=== PATIENT | female | born 1990 | race Hispanic/Latino ===

== ENCOUNTER → 2020-05-15 | Outpatient (CLI) | payer BC, MEDICAID ==
[~2020-05-15] MED LIST: CEPH500C2 PO; FERS325 PO; LABE100T5 PO; LIDOCAINE HCL 2% JELLY 5 ML TP ONE
== END | disposition home or self-care (01) ==
LOC: WHH 10:15
PROVIDERS: ATTEND Family Medicine
DX: T81.32XD Disruption of internal operation (surgical) wound, not elsewhere classified, subsequent encounter (principal); I10 Essential (primary) hypertension; E66.01 Morbid (severe) obesity due to excess calories; Z68.43 Body mass index [BMI] 50.0-59.9, adult; Y83.8 Other surgical procedures as the cause of abnormal reaction of the patient, or of later complication, without mention of misadventure at the time of the procedure
CPT/HCPCS: 97605; 99215

== ENCOUNTER → 2020-05-18 | Outpatient (CLI) | payer BC, MEDICAID ==
[~2020-05-18] MED LIST changes: -LIDOCAINE HCL 2% JELLY 5 ML TP ONE
== END | disposition home or self-care (01) ==
LOC: WHH 14:00
PROVIDERS: ATTEND Family Medicine
DX: T81.32XD Disruption of internal operation (surgical) wound, not elsewhere classified, subsequent encounter (principal); I10 Essential (primary) hypertension; E66.01 Morbid (severe) obesity due to excess calories; Z68.43 Body mass index [BMI] 50.0-59.9, adult; Y83.8 Other surgical procedures as the cause of abnormal reaction of the patient, or of later complication, without mention of misadventure at the time of the procedure
CPT/HCPCS: 97605; 99211

== ENCOUNTER → 2020-05-20 | Outpatient (CLI) | payer BC, MEDICAID ==
[~2020-05-20] MED LIST changes: +LIDOCAINE HCL 4% LTA SOL 4 ML VIAL TP ONE
== END | disposition home or self-care (01) ==
LOC: WHH 15:00
PROVIDERS: ATTEND Family Medicine
DX: T81.32XD Disruption of internal operation (surgical) wound, not elsewhere classified, subsequent encounter (principal); I10 Essential (primary) hypertension; E66.01 Morbid (severe) obesity due to excess calories; Z68.43 Body mass index [BMI] 50.0-59.9, adult; Y83.8 Other surgical procedures as the cause of abnormal reaction of the patient, or of later complication, without mention of misadventure at the time of the procedure
CPT/HCPCS: 97605; 99211

== ENCOUNTER 2020-05-22 22:40 | Emergency (ER) | payer BC, MEDICAID ==
[~2020-05-22 22:40] MED LIST changes: -LIDOCAINE HCL 2% JELLY 5 ML TP ONE
== END 2020-05-22 23:19 | disposition home or self-care (01) ==
LOC: EDH 22:40
DX: T81.89XA Other complications of procedures, not elsewhere classified, initial encounter (principal); I10 Essential (primary) hypertension; Z98.890 Other specified postprocedural states; X58.XXXA Exposure to other specified factors, initial encounter; Y93.89 Activity, other specified; Y92.89 Other specified places as the place of occurrence of the external cause; Y99.8 Other external cause status
CPT/HCPCS: 99281

== ENCOUNTER → 2020-05-22 | Outpatient (CLI) | payer BC, MEDICAID ==
[~2020-05-22] MED LIST changes: +LIDOCAINE HCL 2% JELLY 5 ML TP ONE; -LIDOCAINE HCL 4% LTA SOL 4 ML VIAL TP ONE
== END | disposition home or self-care (01) ==
LOC: WHH 10:00
PROVIDERS: ATTEND Family Medicine
DX: T81.32XD Disruption of internal operation (surgical) wound, not elsewhere classified, subsequent encounter (principal); I10 Essential (primary) hypertension; E66.01 Morbid (severe) obesity due to excess calories; G47.00 Insomnia, unspecified; Z68.43 Body mass index [BMI] 50.0-59.9, adult; Y83.8 Other surgical procedures as the cause of abnormal reaction of the patient, or of later complication, without mention of misadventure at the time of the procedure
CPT/HCPCS: 17250; 97605; 99211

== ENCOUNTER → 2020-05-25 | Outpatient (CLI) | payer BC, MEDICAID | END | disposition home or self-care (01) | LOC: WHH 13:30 | PROVIDERS: ATTEND Family Medicine | DX: T81.32XD Disruption of internal operation (surgical) wound, not elsewhere classified, subsequent encounter (principal); I10 Essential (primary) hypertension; E66.01 Morbid (severe) obesity due to excess calories; G47.00 Insomnia, unspecified; Z68.43 Body mass index [BMI] 50.0-59.9, adult; Y83.8 Other surgical procedures as the cause of abnormal reaction of the patient, or of later complication, without mention of misadventure at the time of the procedure | CPT/HCPCS: 97605; 99211 ==

== ENCOUNTER → 2020-05-27 | Outpatient (CLI) | payer BC, MEDICAID ==
[~2020-05-27] MED LIST changes: +LIDOCAINE HCL 2% JELLY 5 ML TP ONE
== END | disposition home or self-care (01) ==
LOC: WHH 14:00
PROVIDERS: ATTEND Family Medicine
DX: T81.32XD Disruption of internal operation (surgical) wound, not elsewhere classified, subsequent encounter (principal); I10 Essential (primary) hypertension; E66.01 Morbid (severe) obesity due to excess calories; G47.00 Insomnia, unspecified; Z68.43 Body mass index [BMI] 50.0-59.9, adult; Y83.8 Other surgical procedures as the cause of abnormal reaction of the patient, or of later complication, without mention of misadventure at the time of the procedure
CPT/HCPCS: 97605; 99211

== ENCOUNTER → 2020-05-29 | Outpatient (CLI) | payer BC, MEDICAID | END | disposition home or self-care (01) | LOC: WHH 09:30 | PROVIDERS: ATTEND Family Medicine | DX: O90.0 Disruption of cesarean delivery wound (principal); I10 Essential (primary) hypertension; E66.01 Morbid (severe) obesity due to excess calories; G47.00 Insomnia, unspecified; Z68.43 Body mass index [BMI] 50.0-59.9, adult; Y83.8 Other surgical procedures as the cause of abnormal reaction of the patient, or of later complication, without mention of misadventure at the time of the procedure | CPT/HCPCS: 97605; 99214 ==

== ENCOUNTER → 2020-06-01 | Outpatient (CLI) | payer BC, MEDICAID ==
[~2020-06-01] MED LIST changes: -LIDOCAINE HCL 2% JELLY 5 ML TP ONE
== END | disposition home or self-care (01) ==
LOC: WHH 14:00
PROVIDERS: ATTEND Family Medicine
DX: T81.32XD Disruption of internal operation (surgical) wound, not elsewhere classified, subsequent encounter (principal); I10 Essential (primary) hypertension; E66.01 Morbid (severe) obesity due to excess calories; G47.00 Insomnia, unspecified; Z68.43 Body mass index [BMI] 50.0-59.9, adult; Y83.8 Other surgical procedures as the cause of abnormal reaction of the patient, or of later complication, without mention of misadventure at the time of the procedure
CPT/HCPCS: 97605; 99211

== ENCOUNTER → 2020-06-03 | Outpatient (CLI) | payer BC, MEDICAID | END | disposition home or self-care (01) | LOC: WHH 15:00 | PROVIDERS: ATTEND Family Medicine | DX: T81.32XD Disruption of internal operation (surgical) wound, not elsewhere classified, subsequent encounter (principal); I10 Essential (primary) hypertension; E66.01 Morbid (severe) obesity due to excess calories; G47.00 Insomnia, unspecified; Z68.43 Body mass index [BMI] 50.0-59.9, adult; Y83.8 Other surgical procedures as the cause of abnormal reaction of the patient, or of later complication, without mention of misadventure at the time of the procedure | CPT/HCPCS: 97605; 99211 ==

== ENCOUNTER → 2020-06-05 | Outpatient (CLI) | payer BC, MEDICAID ==
[~2020-06-05] MED LIST changes: +LIDOCAINE HCL 2% JELLY 5 ML TP ONE
== END | disposition home or self-care (01) ==
LOC: WHH 09:00
PROVIDERS: ATTEND Family Medicine
DX: O90.0 Disruption of cesarean delivery wound (principal); L02.211 Cutaneous abscess of abdominal wall; I10 Essential (primary) hypertension; E66.01 Morbid (severe) obesity due to excess calories; G47.00 Insomnia, unspecified; Z68.43 Body mass index [BMI] 50.0-59.9, adult; Y83.8 Other surgical procedures as the cause of abnormal reaction of the patient, or of later complication, without mention of misadventure at the time of the procedure
CPT/HCPCS: 87070; 87077; 87186; 99214; A6021; A6196

== ENCOUNTER → 2020-06-08 | Outpatient (CLI) | payer BC, MEDICAID ==
[~2020-06-08] MED LIST changes: -LIDOCAINE HCL 2% JELLY 5 ML TP ONE
== END | disposition home or self-care (01) ==
LOC: WHH 14:00
PROVIDERS: ATTEND Family Medicine
DX: T81.32XD Disruption of internal operation (surgical) wound, not elsewhere classified, subsequent encounter (principal); L02.211 Cutaneous abscess of abdominal wall; I10 Essential (primary) hypertension; E66.01 Morbid (severe) obesity due to excess calories; G47.00 Insomnia, unspecified; Z68.43 Body mass index [BMI] 50.0-59.9, adult; Y83.8 Other surgical procedures as the cause of abnormal reaction of the patient, or of later complication, without mention of misadventure at the time of the procedure
CPT/HCPCS: 99211; A6021; A6196

== ENCOUNTER → 2020-06-10 | Outpatient (CLI) | payer BC, MEDICAID | END | disposition home or self-care (01) | LOC: WHH 15:00 | PROVIDERS: ATTEND Family Medicine | DX: T81.32XD Disruption of internal operation (surgical) wound, not elsewhere classified, subsequent encounter (principal); L02.211 Cutaneous abscess of abdominal wall; I10 Essential (primary) hypertension; E66.01 Morbid (severe) obesity due to excess calories; G47.00 Insomnia, unspecified; Z68.43 Body mass index [BMI] 50.0-59.9, adult; Y83.8 Other surgical procedures as the cause of abnormal reaction of the patient, or of later complication, without mention of misadventure at the time of the procedure | CPT/HCPCS: 99211; A6021 ==

== ENCOUNTER → 2020-06-12 | Outpatient (CLI) | payer BC, MEDICAID ==
[~2020-06-12] MED LIST changes: +LIDOCAINE HCL 2% JELLY 5 ML TP ONE
== END | disposition home or self-care (01) ==
LOC: WHH 09:00
PROVIDERS: ATTEND Family Medicine
DX: O90.0 Disruption of cesarean delivery wound (principal); L02.211 Cutaneous abscess of abdominal wall; I10 Essential (primary) hypertension; E66.01 Morbid (severe) obesity due to excess calories; G47.00 Insomnia, unspecified; Z68.43 Body mass index [BMI] 50.0-59.9, adult; Y83.8 Other surgical procedures as the cause of abnormal reaction of the patient, or of later complication, without mention of misadventure at the time of the procedure
CPT/HCPCS: 99214; A6021

== ENCOUNTER → 2020-06-15 | Outpatient (CLI) | payer BC, MEDICAID ==
[~2020-06-15] MED LIST changes: -LIDOCAINE HCL 2% JELLY 5 ML TP ONE
== END | disposition home or self-care (01) ==
LOC: WHH 13:30
PROVIDERS: ATTEND Family Medicine
DX: T81.32XD Disruption of internal operation (surgical) wound, not elsewhere classified, subsequent encounter (principal); I10 Essential (primary) hypertension; E66.01 Morbid (severe) obesity due to excess calories; G47.00 Insomnia, unspecified; Z68.43 Body mass index [BMI] 50.0-59.9, adult; Y83.8 Other surgical procedures as the cause of abnormal reaction of the patient, or of later complication, without mention of misadventure at the time of the procedure
CPT/HCPCS: 99211; A6021

== ENCOUNTER → 2020-06-17 | Outpatient (CLI) | payer BC, MEDICAID | END | disposition home or self-care (01) | LOC: WHH 14:30 | PROVIDERS: ATTEND Family Medicine | DX: T81.32XD Disruption of internal operation (surgical) wound, not elsewhere classified, subsequent encounter (principal); I10 Essential (primary) hypertension; E66.01 Morbid (severe) obesity due to excess calories; G47.00 Insomnia, unspecified; Z68.43 Body mass index [BMI] 50.0-59.9, adult; Y83.8 Other surgical procedures as the cause of abnormal reaction of the patient, or of later complication, without mention of misadventure at the time of the procedure | CPT/HCPCS: 99211; A6021 ==

== ENCOUNTER → 2020-06-19 | Outpatient (CLI) | payer BC, MEDICAID | END | disposition home or self-care (01) | LOC: WHH 09:00 | PROVIDERS: ATTEND Family Medicine | DX: O90.0 Disruption of cesarean delivery wound (principal); I10 Essential (primary) hypertension; E66.01 Morbid (severe) obesity due to excess calories; G47.00 Insomnia, unspecified; Z68.43 Body mass index [BMI] 50.0-59.9, adult; Y83.8 Other surgical procedures as the cause of abnormal reaction of the patient, or of later complication, without mention of misadventure at the time of the procedure | CPT/HCPCS: 99214; A6021 ==

== ENCOUNTER → 2020-06-22 | Outpatient (CLI) | payer BC, MEDICAID | END | disposition home or self-care (01) | LOC: WHH 13:30 | PROVIDERS: ATTEND Family Medicine | DX: T81.32XD Disruption of internal operation (surgical) wound, not elsewhere classified, subsequent encounter (principal); I10 Essential (primary) hypertension; E66.01 Morbid (severe) obesity due to excess calories; G47.00 Insomnia, unspecified; Z68.43 Body mass index [BMI] 50.0-59.9, adult; Y83.8 Other surgical procedures as the cause of abnormal reaction of the patient, or of later complication, without mention of misadventure at the time of the procedure | CPT/HCPCS: 99211; A6021 ==

== ENCOUNTER → 2020-06-26 | Outpatient (CLI) | payer BC, MEDICAID | END | disposition home or self-care (01) | LOC: WHH 09:15 | PROVIDERS: ATTEND Family Medicine | DX: O90.0 Disruption of cesarean delivery wound (principal); I10 Essential (primary) hypertension; E66.01 Morbid (severe) obesity due to excess calories; G47.00 Insomnia, unspecified; Z68.43 Body mass index [BMI] 50.0-59.9, adult; Y83.8 Other surgical procedures as the cause of abnormal reaction of the patient, or of later complication, without mention of misadventure at the time of the procedure | CPT/HCPCS: 17250; A6021 ==

== ENCOUNTER → 2020-06-29 | Outpatient (CLI) | payer BC, MEDICAID ==
[~2020-06-29] MED LIST changes: +LIDOCAINE HCL 4% LTA SOL 4 ML VIAL TP ONE
== END | disposition home or self-care (01) ==
LOC: WHH 13:30
PROVIDERS: ATTEND Family Medicine
DX: O90.0 Disruption of cesarean delivery wound (principal); I10 Essential (primary) hypertension; E66.01 Morbid (severe) obesity due to excess calories; G47.00 Insomnia, unspecified; Z68.43 Body mass index [BMI] 50.0-59.9, adult; Y83.8 Other surgical procedures as the cause of abnormal reaction of the patient, or of later complication, without mention of misadventure at the time of the procedure
CPT/HCPCS: 11042; A4450

== ENCOUNTER → 2020-07-06 | Outpatient (CLI) | payer BC, MEDICAID ==
[~2020-07-06] MED LIST changes: -LIDOCAINE HCL 4% LTA SOL 4 ML VIAL TP ONE
== END | disposition home or self-care (01) ==
LOC: WHH 13:30
PROVIDERS: ATTEND Family Medicine
DX: O90.0 Disruption of cesarean delivery wound (principal); I10 Essential (primary) hypertension; E66.01 Morbid (severe) obesity due to excess calories; G47.00 Insomnia, unspecified; Z68.43 Body mass index [BMI] 50.0-59.9, adult; Y83.8 Other surgical procedures as the cause of abnormal reaction of the patient, or of later complication, without mention of misadventure at the time of the procedure
CPT/HCPCS: 99214

== ENCOUNTER 2023-07-11 07:36 | Day surgery (SDC) | payer BC, MEDICAID ==
[2023-07-06 10:02] VITALS: BP 173/65; PULSE 85; RESP 17
[2023-07-06 10:09] LABS: BASOPHILS # (AUTO) 0.04 K/uL (0.00-0.20); BASOPHILS % (AUTO) 0.7 % (0.0-5.0); EOSINOPHILS # (AUTO) 0.13 K/uL (0.00-0.70); EOSINOPHILS % (AUTO) 2.1 % (0.0-8.0); HEMATOCRIT 40.5 % (36-48); IMMATURE GRANULOCYTE ABSOLUTE 0.03 K/uL (0-1); LYMPHOCYTES # (AUTO) 1.9 K/uL (1.0-4.8); LYMPHOCYTES % (AUTO) 30.7 % (21.0-51.0); MEAN CORPUSCULAR HEMOGLOBIN 27.3 pg (27.0-33.0); MEAN CORPUSCULAR HGB CONC 31.6 g/dL (32.0-36.0); MEAN CORPUSCULAR VOLUME 86.4 fL (79-99); MONOCYTES # (AUTO) 0.3 K/uL (0.1-1.0); MONOCYTES % (AUTO) 5.4 % (3.0-13.0); NEUTROPHILS # (AUTO) 3.7 K/uL (1.8-7.7); NEUTROPHILS % (AUTO) 60.6 % (40.0-77.0); PLATELET COUNT (AUTO) 239 K/uL (130-400); RED BLOOD CELL COUNT(AUTO) 4.69 MIL/uL (4.00-5.50); RED CELL DISTRIBUTION WIDTH 14.3 % (11.0-15.5); WHITE BLOOD COUNT (AUTO) 6.1 K/uL (4.8-10.8)
[2023-07-06 10:17] LABS: CREATININE 0.6 mg/dL (0.5-1.5); POTASSIUM 3.8 mmol/L (3.5-5.1)
[2023-07-06 10:36] LABS: INR < 0.93 (0.85-1.15); PROTHROMBIN TIME 10.8 SEC (9.6-11.6)
[2023-07-11] VITALS (10 sets, daily range): BP systolic 109–140; BP diastolic 61–84; PULSE 82–98; RESP 14–17
[~2023-07-11] VITALS: Ht 160 cm; Wt 177.4 kg
[~2023-07-11 07:36] MED LIST changes: -CEPH500C2 PO; -FERS325 PO; -LABE100T5 PO; +LISI10TA24 PO
[2023-07-11] MEDS ORDERED: LACTATED RINGERS 1000ML 1,000 ML IV ONE ×2 (09:32→10:10)
[2023-07-11] MEDS ORDERED: CEFAZOLIN SODIUM 1 GM VIAL ONE (10:09)
[2023-07-11] MEDS ORDERED: FENTANYL CITRATE PF 50 MCG/1 ML 2ML VIAL ONE (10:59)
[2023-07-11] MEDS ORDERED: MIDAZOLAM HCL 1 MG/ML 2ML VIAL ONE ×2 (10:59→11:11)
[2023-07-11] MEDS ORDERED: BUPIVACAINE/PF 0.5% 30ML VIAL ONE (11:20)
[2023-07-11] MEDS ORDERED: ONDANSETRON 4MG INJ ONE (11:32)
[2023-07-11] MEDS ORDERED: TRAM50TA4 PO (11:36)
[2023-07-11] MEDS ORDERED: DOCU-116 PO (11:36)
== END 2023-07-11 12:35 | disposition home or self-care (01) ==
LOC: DAH 07:36
PROVIDERS: ATTEND Surgery
DX: L72.3 Sebaceous cyst (principal); I10 Essential (primary) hypertension; F17.210 Nicotine dependence, cigarettes, uncomplicated; E66.01 Morbid (severe) obesity due to excess calories; Z68.44 Body mass index [BMI] 60.0-69.9, adult; Z83.3 Family history of diabetes mellitus; Z98.891 History of uterine scar from previous surgery
CPT/HCPCS: 80048; 84703; 85025; 85610; 85730; 36415; 11403; 81025; A6260; A4663; J7120 ×3; A4452; J3010; J0690; J2250 ×2; J2405; J0665; A4930 ×2; A4215; A4223; A4222; A4221; A4600

== ENCOUNTER 2023-12-06 09:27 | Emergency (ER) | payer BC, MEDICAID ==
[~2023-12-06] VITALS: Ht 160 cm; Wt 181.4 kg
[~2023-12-06 09:27] MED LIST changes: +DOCU-116 PO; +TRAM50TA4 PO
[2023-12-06 10:22] LABS: HEMATOCRIT 38.7 % (36-48); MEAN CORPUSCULAR HGB CONC 33.6 g/dL (32.0-36.0); MEAN CORPUSCULAR VOLUME 86.4 fL (79-99); PLATELET COUNT (AUTO) 198 K/uL (130-400); RED BLOOD CELL COUNT(AUTO) 4.48 MIL/uL (4.00-5.50); RED CELL DISTRIBUTION WIDTH 13.6 % (11.0-15.5); WHITE BLOOD COUNT (AUTO) 7.4 K/uL (4.8-10.8)
[2023-12-06 10:24] LABS: CREATININE 0.6 mg/dL (0.5-1.0); POTASSIUM 3.7 mmol/L (3.5-5.1)
[2023-12-06 10:29] LABS: HCG,QUALITATIVE URINE NEGATIVE (NEGATIVE)
[2023-12-06 10:30] LABS: ALBUMIN 3.5 g/dL (3.5-5.0); BILIRUBIN,DIRECT 0.1 mg/dL (0.0-0.3); BILIRUBIN,TOTAL 0.4 mg/dL (0.2-1.0)
[2023-12-06 10:30] LABS: APPEARANCE,URINE CLOUDY (CLEAR); BILIRUBIN,URINE NEGATIVE (NEGATIVE); COLOR,URINE YELLOW (YELLOW); GLUCOSE, URINE (UA) NEGATIVE (NEGATIVE); KETONES,URINE NEGATIVE (NEGATIVE); LEUKOCYTE ESTERASE ,URINE NEGATIVE Leu/uL (NEGATIVE); NITRATE,URINE NEGATIVE (NEGATIVE); OCCULT BLOOD,URINE SMALL (NEGATIVE); PROTEIN,URINE 20 mg/dL (NEGATIVE); UROBILINOGEN,URINE 0.2 mg/dL (0.2-1.0)
[2023-12-06 10:46] LABS: ADD UA MICROSCOPIC YES
[2023-12-06 10:50] LABS: BACTERIA,URINE RARE /HPF (None Seen); MUCUS,URINE FEW LPF (None Seen); SQUAMOUS EPITHELIAL CELL,UR MANY /HPF (0-2)
[2023-12-06 11:07] LABS: EOSINOPHILS % (MANUAL) 1 % (1-6); LYMPHOCYTES % (MANUAL) 27 % (22-44); MAN.DIFF COMMENT-IMPRESSION MANUAL DIFFERENTIAL; MONOCYTES % (MANUAL) 6 % (2-9); PLATELET MORPHOLOGY COMMENT ADEQUATE; REACTIVE LYMPHOCYTES 11 % (0-0); SEGMENTED NEUTROPHILS % 55 % (40-70); TOTAL CELLS COUNTED 100
[2023-12-06] MEDS ORDERED: DICY20TA2 PO (13:16)
[2023-12-06] MEDS: DICYCLOMINE HCL 20 MG TAB PO ONE (13:26)
[2023-12-06] MEDS: KETOROLAC 15MG/ML VIAL (15MG/ML) IV ONE (13:26)
[2023-12-06] MEDS: ONDANSETRON 4MG INJ IVP ONE (13:26)
[2023-12-06 13:45] VITALS: BP 165/88; PULSE 90; RESP 16; O2SAT 99
== END 2023-12-06 13:48 | disposition home or self-care (01) ==
LOC: EDH 09:27
DX: R10.30 Lower abdominal pain, unspecified (principal); I10 Essential (primary) hypertension; D46.9 Myelodysplastic syndrome, unspecified; Z79.899 Other long term (current) drug therapy; Z98.890 Other specified postprocedural states
CPT/HCPCS: 99284; 74176; 96374; 80076; 80048; 85025; 81001; 81025; 36415; J1885

== ENCOUNTER 2024-04-09 17:21 | Emergency (ER) | payer BC, MEDICAID ==
[~2024-04-09] VITALS: Ht 162.6 cm; Wt 162.4 kg
[~2024-04-09 17:21] MED LIST changes: +DICY20TA2 PO; +ONDA-243 PO
[2024-04-09 17:59] LABS: BASOPHILS # (AUTO) 0.04 K/uL (0.00-0.20); BASOPHILS % (AUTO) 0.6 % (0.0-5.0); EOSINOPHILS # (AUTO) 0.13 K/uL (0.00-0.70); HEMATOCRIT 39.3 % (36-48); IMMATURE GRANULOCYTE ABSOLUTE 0.01 K/uL (0-1); LYMPHOCYTES # (AUTO) 2.2 K/uL (1.0-4.8); MEAN CORPUSCULAR HEMOGLOBIN 30.6 pg (27.0-33.0); MEAN CORPUSCULAR HGB CONC 33.6 g/dL (32.0-36.0); MONOCYTES # (AUTO) 0.4 K/uL (0.1-1.0); MONOCYTES % (AUTO) 6.8 % (3.0-13.0); NEUTROPHILS # (AUTO) 3.6 K/uL (1.8-7.7); NEUTROPHILS % (AUTO) 56.4 % (40.0-77.0); PLATELET COUNT (AUTO) 190 K/uL (130-400); RED BLOOD CELL COUNT(AUTO) 4.32 MIL/uL (4.00-5.50); RED CELL DISTRIBUTION WIDTH 12.4 % (11.0-15.5); WHITE BLOOD COUNT (AUTO) 6.4 K/uL (4.8-10.8)
[2024-04-09 18:00] LABS: APPEARANCE,URINE CLEAR (CLEAR); BILIRUBIN,URINE NEGATIVE (NEGATIVE); COLOR,URINE LIGHT-YELLOW (YELLOW); GLUCOSE, URINE (UA) NEGATIVE (NEGATIVE); KETONES,URINE 5 mg/dL (NEGATIVE); LEUKOCYTE ESTERASE ,URINE NEGATIVE Leu/uL (NEGATIVE); NITRATE,URINE NEGATIVE (NEGATIVE); OCCULT BLOOD,URINE NEGATIVE (NEGATIVE); PROTEIN,URINE NEGATIVE (NEGATIVE); UROBILINOGEN,URINE 0.2 mg/dL (0.2-1.0)
[2024-04-09 18:06] LABS: ADD UA MICROSCOPIC NO
[2024-04-09 18:25] LABS: CREATININE 0.6 mg/dL (0.5-1.0); POTASSIUM 3.4 mmol/L (3.5-5.1)
[2024-04-09 18:30] LABS: ALBUMIN 3.6 g/dL (3.5-5.0); BILIRUBIN,TOTAL 0.7 mg/dL (0.2-1.0); TOTAL PROTEIN, SERUM 7.8 g/dL (6.0-8.3)
[2024-04-09] MEDS ORDERED: IBUP-2077 PO (18:52)
[2024-04-09] MEDS ORDERED: CYCL10TA16 PO (18:52)
[2024-04-09 19:39] VITALS: BP 143/82; PULSE 80; RESP 16; TEMP 98.3; O2SAT 99
[2024-04-09] MEDS: HYDROcodone/APAP 5/325 1 TAB TABLET PO ONE (19:48)
[2024-04-09] MEDS: IBUPROFEN 800 MG TAB PO ONE (19:48)
== END 2024-04-09 19:52 | disposition home or self-care (01) ==
LOC: EDH 17:21
DX: S39.012A Strain of muscle, fascia and tendon of lower back, initial encounter (principal); I10 Essential (primary) hypertension; Z79.899 Other long term (current) drug therapy; Z90.49 Acquired absence of other specified parts of digestive tract; Z98.890 Other specified postprocedural states; X58.XXXA Exposure to other specified factors, initial encounter; Y93.89 Activity, other specified; Y92.89 Other specified places as the place of occurrence of the external cause; Y99.8 Other external cause status
CPT/HCPCS: 36415; 76770; 80053; 81003; 81025; 83690; 85025

== ENCOUNTER 2024-11-22 00:17 | Emergency (ER) | payer BC, MEDICAID ==
[~2024-11-22] VITALS: Ht 162.6 cm; Wt 164.7 kg
[~2024-11-22 00:17] MED LIST changes: +CYCL10TA16 PO; +IBUP-2077 PO
--- NOTE | 2024-11-22 00:22 | NUR ---
UA CUP PROVIDED
--- NOTE | 2024-11-22 00:28 | NUR ---
UA COLLECTED AND SENT
--- NOTE | 2024-11-22 01:03 | ERN ---
General Chief Complaint: Abscess Stated Complaint: ABSCESS Time Seen by MD: 00:31 Source: patient History of Present Illness Initial Comments Patient is a large BMI patient who has past medical history is hypertension, sleep apnea and possibly hidradenitis suppurativa. She comes in with a neck abscess. She has had one surgically drained prior in the same location. No constitutional symptoms of fevers or chills. Timing/Duration: 1 week Allergies: Coded Allergies: No Known Allergies (Unverified Allergy, Unknown, 04/26/20) Home Meds Active Scripts Ibuprofen (Ibuprofen 800 mg Tab) 800 Mg Tab, 800 MG PO Q8H PRN for fever or pain, #30 TAB 0 Refills Prov:CHITRA SHELDON SENIOR ELECTRICAL ESTIMATOR 04/09/24 Cyclobenzaprine HCl (Flexeril) 10 Mg Tab, 10 MG PO TID for 5 Days, #15 TAB Prov:CHITRA SHELDON SENIOR ELECTRICAL ESTIMATOR 04/09/24 Ondansetron (Ondansetron Odt) 4 Mg Tab.rapdis, 4 MG PO Q6HPRN PRN for nausea, #16 TAB 0 Refills Prov:DOMINGA GRANT MD 01/14/24 Dicyclomine HCl (Bentyl) 20 Mg Tab, 20 MG PO BID for 5 Days, #10 TAB Prov:DOMINGA GRANT MD 01/14/24 Dicyclomine HCl (Bentyl) 20 Mg Tab, 20 MG PO BID for 5 Days, #10 TAB Prov:TRACEY GARCIA MD 12/06/23 Docusate Sodium (Colace) 100 Mg Capsule, 100 MG PO BID, #30 CAP 0 Refills Prov:RU TENA MD 07/11/23 Tramadol Hcl (Tramadol HCl) 50 Mg Tablet, 50 MG PO Q6HPRN PRN for PAIN, #15 TAB 0 Refills Prov:RU TENA MD 07/11/23 Reported Medications Lisinopril (Lisinopril) 10 Mg Tablet, 1 TAB PO DAILY 07/06/23 Past Medical History Past Medical History: Hypertension Medical History Other: SLEEP APNEA, HERNIA, obese Past Surgical History: Cholecystectomy Surgical History Other: ABCESS TO NECK Female( History) History: Not Applicable Constitutional: (-) chills, (-) diaphoresis, (-) fever, (-) malaise, (-) weakness, (-) other documentation EENTM: (-) eye pain, (-) blurred vision, (-) tearing, (-) double vision, (-) ear pain, (-) ear discharge, (-) nose pain, (-) nose congestion, (-) throat pain, (-) Throat swelling, (-) mouth pain, (-) tooth pain, (-) mouth swelling, (-) other documentation Respiratory: (-) cough, (-) orthopnea, (-) short of breath, (-) stridor, (-) wheezing, (-) other documentation Cardiovascular: (-) chest pain, (-) edema, (-) palpitations, (-) syncope, (-) dyspnea on exertion, (-) other documentation Gastrointestinal/Abdominal: (-) nausea, (-) vomiting, (-) diarrhea, (-) abdominal pain, (-) abdominal distention, (-) constipation, (-) rectal bleeding, (-) dark stool/melena, (-) other documentation Musculoskeletal: (-) Neck pain, (-) back pain, (-) Flank Pain, (-) joint pain, (-) joint swelling, (-) muscle pain, (-) muscle stiffness, (-) gout, (-) other documentation Skin: (-) laceration, (-) contusion, (-) abrasion, (-) abscess, (-) rash, (-) change in color, (-) change in hair, (-) change in nails, (-) diaphoresis, (-) dryness, (-) other documentation Physical Exam General Appearance: (+) no apparent distress Orientation: (+) oriented x 3 Head/Face Trauma: No Eye: bilateral eye normal inspection, bilateral eye PERRL, bilateral eye EOMI Neck Comment Patient has a large abscess midline just above C7 there is surrounding erythema it is tender it is not draining. Results Laboratory and Microbiology Lab and Micro Result Laboratory Tests Test 11/22/24 01:16 White Blood Count 8.8 K/uL (4.8-10.8) Red Blood Count 4.41 MIL/uL (4.00-5.50) Hemoglobin 13.4 g/dL (12.0-16.0) Hematocrit 39.8 % (36-48) Mean Corpuscular Volume 90.2 fL (79-99) Mean Corpuscular Hemoglobin 30.4 pg (27.0-33.0) Mean Corpuscular Hemoglobin Concent 33.7 g/dL (32.0-36.0) Red Cell Distribution Width 12.3 % (11.0-15.5) Platelet Count 192 K/uL (130-400) Mean Platelet Volume 9.9 fL (7.5-10.5) Immature Granulocyte % (Auto) 0.2 % (0-1) Neutrophils (%) (Auto) 60.9 % (40.0-77.0) Lymphocytes (%) (Auto) 30.3 % (21.0-51.0) Monocytes (%) (Auto) 7.0 % (3.0-13.0) Eosinophils (%) (Auto) 1.1 % (0.0-8.0) Basophils (%) (Auto) 0.5 % (0.0-5.0) Neutrophils # (Auto) 5.3 K/uL (1.8-7.7) Lymphocytes # (Auto) 2.7 K/uL (1.0-4.8) Monocytes # (Auto) 0.6 K/uL (0.1-1.0) Eosinophils # (Auto) 0.10 K/uL (0.00-0.70) Basophils # (Auto) 0.04 K/uL (0.00-0.20) Absolute Immature Granulocyte (auto 0.02 K/uL (0-1) Nucleated Red Blood Cells 0.0 % (0.0-0.19) MDM I will order a CBC and start antibiotics. I have taken a picture of the wound I will call surgery to see how they want to handle this, i.e. either in the ED or in the operating room. I discussed the case with General surgery. We think that it is a sebaceous cyst. Step one will be to drain it to relieve the pressure and pain and help clear the infection before taking the patient to the operating room at a later date. Please see the procedure note for details. Pt will be D/C. with Keflex. Call wharf builder for surgery referral to remove remnants of cyst. ED Course Orders Procedure Category Date Status Time Cbc With Differential LAB 11/22/24 Complete 01:03 Cefazolin Sodium 1 Gm PHA 11/22/24 Complete Vial (Ancef 1 Gm V 01:03 Lidocaine 2%-Epi PHA 11/22/24 In Process 1:200,000 (Lidocaine 01:30 Current Medications Medications (Trade) Dose Ordered Sig/Jodie Route PRN Reason Start Time Stop Time Status Last Admin Dose Admin Cefazolin Sodium (ANCEF 1 gm vial) 1 gm ONCE STAT IVPB 11/22/24 01:03 11/22/24 01:07 DC 11/22/24 01:33 Lidocaine/ Epinephrine (Lidocaine 2%-Epi 1:200,000) 20 ml ONCE IJ 11/22/24 01:30 12/22/24 01:29 11/22/24 01:57 Vital Signs Date Time Temp Pulse Resp B/P (MAP) Pulse Ox O2 Delivery O2 Flow Rate FiO2 11/22/24 02:07 98.6 67 20 124/88 100 Room Air* 0 21 11/22/24 00:45 98.6 66 20 128/87 100 Room Air* 0 21 11/22/24 00:18 97.9 92 20 165/91 99 Room Air Incision and Drainage Incision and Drainage : Blade Size: scissors I & D Procedure: no sterile drapes appliedno sterile dressing appliedno gauze wick placed Progress This cavity in the skin surrounding was injected with 1% lidocaine with epinephrine. And then using scissors and whole was rated in the roof of the abscess. A large amount of purulent draining drainage was released with decrease in erythema surrounding the wound. I explained to the patient how to do of the wound care. And the need to get a surgeon to remove the remnants of the cyst. DX & DISP Disposition: Discharge Departure Impression: Primary Impression: Neck abscess Condition: Stable Scripts Cephalexin Monohydrate (Keflex) 500 Mg Cap 500 MG PO QID for 7 Days, #28 CAP Prov: MARILY HUIZAR MD 11/22/24 Referrals: NONE (PCP) MARILY HUIZAR MD Nov 22, 2024 01:02
[2024-11-22 01:23] LABS: BASOPHILS # (AUTO) 0.04 K/uL (0.00-0.20); BASOPHILS % (AUTO) 0.5 % (0.0-5.0); EOSINOPHILS % (AUTO) 1.1 % (0.0-8.0); HEMATOCRIT 39.8 % (36-48); IMMATURE GRANULOCYTE ABSOLUTE 0.02 K/uL (0-1); LYMPHOCYTES # (AUTO) 2.7 K/uL (1.0-4.8); LYMPHOCYTES % (AUTO) 30.3 % (21.0-51.0); MEAN CORPUSCULAR HEMOGLOBIN 30.4 pg (27.0-33.0); MEAN CORPUSCULAR HGB CONC 33.7 g/dL (32.0-36.0); MEAN CORPUSCULAR VOLUME 90.2 fL (79-99); MONOCYTES # (AUTO) 0.6 K/uL (0.1-1.0); NEUTROPHILS # (AUTO) 5.3 K/uL (1.8-7.7); NEUTROPHILS % (AUTO) 60.9 % (40.0-77.0); PLATELET COUNT (AUTO) 192 K/uL (130-400); RED BLOOD CELL COUNT(AUTO) 4.41 MIL/uL (4.00-5.50); RED CELL DISTRIBUTION WIDTH 12.3 % (11.0-15.5); WHITE BLOOD COUNT (AUTO) 8.8 K/uL (4.8-10.8)
[2024-11-22] MEDS: ceFAZolin SODIUM 1 GM VIAL IVPB STA (01:33)
[2024-11-22] MEDS: LIDOCAINE 2%-EPI 1:200,000 20 ML VIAL IJ SCH (01:57)
[2024-11-22 02:07] VITALS: BP 124/88; PULSE 67; RESP 20; TEMP 98.6; O2SAT 100
[2024-11-22] MEDS ORDERED: CEPH500B PO (02:19)
== END 2024-11-22 02:25 | disposition home or self-care (01) ==
LOC: EDH 00:17
DX: L02.11 Cutaneous abscess of neck (principal); E66.9 Obesity, unspecified; G47.30 Sleep apnea, unspecified; I10 Essential (primary) hypertension; Z79.899 Other long term (current) drug therapy; Z90.49 Acquired absence of other specified parts of digestive tract
CPT/HCPCS: 99284; 10061; 96374; 85025; 36415; J0690; J3490